=== PATIENT | female | born 1925 | race Caucasian/White ===

== ENCOUNTER 2016-12-27 09:04 | Inpatient (IN) | payer BC ==
--- NOTE | 2016-12-27 09:09 | DR.GENAD ---
HPI - HPI Comment HPI Comment: PATIENT HAVE NO SINIFICANT PAST MEDICAL HISTORY. RECENT OVARIAN CANCER ON TREATMENT. - Complaint/Symptoms Chief Complaint Doctors Comments: DIZZINESS, NEAR SYNCOPAL FELLING, PALPITATION NOTED TODAY. A FIB WITH RVR ON CORONARY CLINICAL SPECIALIST AND EKG. NO PREVIOUS HISTORY. - Nurses notes reviewed Nurses Notes Review: Yes - Source History Provided: Patient - Mode of Arrival Mode of Arrival: Ambulatory - Timing Came on: Suddenly - Duration Duration: Constant Duration: Hours - Severity Severity: Moderate ROS - Review of Systems Constitutional: Weakness, Fatigue Eyes: No Symptoms Reported. negative: Eye Pain, Tearing, Discharge ENTM: negative: Ear Pain, Nose Discharge, Nose Congestion, Throat Pain Respiratoy: Productive Cough, Short of Breath, Wheezing. negative: Non- Productive Cough, Hemoptysis Cardiovascular: Chest Pain, Palpitations Gastrointestinal/Abdominal: No Symptoms Reported Genitourinary: No Symptoms Reported Neurological: Weakness, Dizziness Musculoskeletal: No Symptoms Reported Integumentary: No Symptoms Reported Hematologic/Lymphatic: No Symptoms Reported All Other Systems: Reviewed and Negative PE - Vital Signs Vitals: Temperature 97.5 F Pulse Rate [Right Radial] 107 Pulse Rate 191 Respiratory Rate 20 Blood Pressure [Right Arm] 113/70 Blood Pressure 108/81 O2 Sat by Pulse Oximetry 99 - General Limitations: No Limitations General Appearance: Alert - Head Head Exam: Normal Inspection - Eyes Eye exam: Normal Appearance - ENT ENT Exam: Normal External Ear Exam External Ear Exam: Normal External Inspection TM/Canal Exam: Bilateral Normal Nose Exam: Normal Nose Exam Mouth Exam: Normal Inspection Throat Exam: Normal Inspection - Neck Neck Exam: Normal Inspection - Chest Chest Inspection: Symmetric Chest Wall Rise - Respiratory Respiratory Exam: Normal Lung Sounds Bilat Respiratory Exam: Bilateral Clear to Auscultation - Cardiovascular Cardiovascular Exam: Tachycardia, Irregular Rhythm - Abdominal Exam Abdominal Exam: Normal Bowel Sounds, Soft. negative: Tenderness - Extremities Extremities Exam: Normal Inspection - Back Back Exam: Normal Inspection - Neurologic Neurological Exam: Alert, Oriented X3, CN II-XII Intact - Psychiatric Psychiatric Exam: Normal Affect, Normal Mood - Skin Skin Exam: Normal Color MDM - Additional Information Additional Information Obtained From: Family - Differential Diagnosis Differential Diagnosis: NEW ONSET A FIB WITH RVR Course - Treatment Treatment: SEE ORDERS. IV BOLUS CARDIOZEM IN ED. - Consultation Consultation Comments: DISCUSS PATIENT WITH DR. FISHER. HE WILL ADMIT PATIENT. - Education/Counseling Education/Counseling: Patient, Education Educated On: Treatment, Diagnosis, Needs for Follow Up ROR - Labs Reviewed Laboratory Results Reviewed?: Yes Result Diagrams: 12/28/16 03:20 12/28/16 03:20 Laboratory: WBC 10.2 X10^3/uL (3.6-10.0) H 12/27/16 09:15 RBC 4.34 X10^6/uL (3.5-5.4) 12/27/16 09:15 Hgb 13.7 g/dL (12.0-16.0) 12/27/16 09:15 Hct 39.9 % (36.0-47.0) 12/27/16 09:15 MCV 91.8 fL (80.0-100.0) 12/27/16 09:15 MCH 31.5 pg (27.0-34.0) 12/27/16 09:15 MCHC 34.3 g/dL (33.0-35.0) 12/27/16 09:15 RDW 16.2 % (11.6-16.5) 12/27/16 09:15 Plt Count 266 X10^3/uL (150.0-450.0) 12/27/16 09:15 MPV 8.3 fL (7.4-11.0) 12/27/16 09:15 Neut % 80.8 % (42.0-75.0) H 12/27/16 09:15 Lymph % 15.5 % (21.0-51.0) L 12/27/16 09:15 [place] % 2.8 % (0.0-13.0) 12/27/16 09:15 Eos % 0.6 % (0.9-2.9) L 12/27/16 09:15 Baso % 0.3 % (0.2-1.0) 12/27/16 09:15 Neut # 8.2 x10^3/uL (2.2-4.8) H 12/27/16 09:15 Lymph # 1.6 X10^3/uL (1.3-2.9) 12/27/16 09:15 [place] # 0.3 x10^3/uL (0.3-0.8) 12/27/16 09:15 Eos # 0.1 x10^3/uL (0.0-0.2) 12/27/16 09:15 Baso # 0.0 X10^3/uL (0.0-0.1) 12/27/16 09:15 Absolute Nucleated RBC 0.0 /100WBC 12/27/16 09:15 Sodium 138 mmol/L (136-145) 12/27/16 09:15 Corrected Sodium 141 mmol/L (136-145) 12/27/16 09:15 Potassium 3.7 mmol/L (3.5-5.1) 12/27/16 09:15 Chloride 100 mmol/L (98-107) 12/27/16 09:15 Carbon Dioxide 26.9 mmol/L (21-32) 12/27/16 09:15 BUN 27 mg/dL (7-18) H 12/27/16 09:15 Creatinine 1.30 mg/dL (0.55-1.02) H 12/27/16 09:15 Est GFR (MDRD) Af Amer 50 (>60) L 12/27/16 09:15 Est GFR (MDRD) Non-Af 41 (>60) L 12/27/16 09:15 Glucose 222 mg/dL (65-99) H 12/27/16 09:15 Hemoglobin A1c 6.6 % (4.5-6.2) H 12/27/16 09:15 Calcium 8.8 mg/dL (8.5-10.1) 12/27/16 09:15 Corrected Calcium 9.7 mg/dL (8.5-10.1) 12/27/16 09:15 Total Bilirubin 1.00 mg/dL (0.2-1.0) 12/27/16 09:15 AST 23 Units/L (15-37) 12/27/16 09:15 ALT 32 Units/L (12-78) 12/27/16 09:15 Alkaline Phosphatase 91 Units/L (46-116) 12/27/16 09:15 Creatine Kinase 42 Units/L (26-192) 12/27/16 09:15 CK-MB (CK-2) < 1.0 ng/mL (0-4.0) 12/27/16 09:15 CK/CKMB % Calc 2.4 % (<4) 12/27/16 09:15 Troponin I 0.03 ng/mL (0-1.5) 12/27/16 09:15 Total Protein 6.2 g/dL (6.4-8.2) L 12/27/16 09:15 Albumin 2.9 g/dL (3.4-5.0) L 12/27/16 09:15 Globulin 3.3 g/dL (2.5-4.5) 12/27/16 09:15 Albumin/Globulin Ratio 0.9 Ratio (1.1-2.1) L 12/27/16 09:15 - XRAY XRAY Interpreted by: Radiologist XRAY Findings: REPORT DISCUSS WITH PATIENT. - EKG Rhythm: Afib (EKG NOTED) - Diagnosis Discharge Problem: Atrial fibrillation with RVR, New onset a-fib UTI (urinary tract infection) Qualifiers: Urinary tract infection type: site unspecified Hematuria presence: without hematuria Qualified Code(s): N39.0 - Urinary tract infection, site not specified - Discharge Plan Disposition: ADMITTED INPATIENT Condition: Stable - Follow ups/Referrals - Instructions
[2016-12-27] MEDS ORDERED: CARDIZEM INJ 125 MG VIAL 125 MG in NS 100 ML IV 100 ML IV PRN (09:11)
[2016-12-27] MEDS ORDERED: CARDIZEM INJ 50 MG VIAL IVP ONE (09:11)
[2016-12-27] MEDS ORDERED: CARDIZEM INJ 50 MG VIAL ONE (09:18)
[2016-12-27] MEDS ORDERED: NS 1000 ML 1,000 ML ONE (09:32)
[2016-12-27 09:38] LABS: BASOPHILS % (AUTO) 0.3 % (0.2-1.0); EOSINOPHILS # (AUTO) 0.1 x10^3/uL (0.0-0.2); EOSINOPHILS % (AUTO) 0.6 % (0.9-2.9); HEMATOCRIT 39.9 % (36.0-47.0); HEMOGLOBIN 13.7 g/dL (12.0-16.0); LYMPHOCYTES # (AUTO) 1.6 X10^3/uL (1.3-2.9); LYMPHOCYTES % (AUTO) 15.5 % (21.0-51.0); MEAN CORPUSCULAR HEMOGLOBIN 31.5 pg (27.0-34.0); MEAN CORPUSCULAR HGB CONC 34.3 g/dL (33.0-35.0); MEAN CORPUSCULAR VOLUME 91.8 fL (80.0-100.0); MEAN PLATELET VOLUME 8.3 fL (7.4-11.0); MONOCYTES # (AUTO) 0.3 x10^3/uL (0.3-0.8); MONOCYTES % (AUTO) 2.8 % (0.0-13.0); NEUTROPHILS # (AUTO) 8.2 x10^3/uL (2.2-4.8); NEUTROPHILS % (AUTO) 80.8 % (42.0-75.0); PLATELET COUNT 266 X10^3/uL (150.0-450.0); RED BLOOD COUNT 4.34 X10^6/uL (3.5-5.4); RED CELL DISTRIBUTION WIDTH 16.2 % (11.6-16.5); WHITE BLOOD COUNT 10.2 X10^3/uL (3.6-10.0)
[2016-12-27] MEDS ORDERED: NS 1000 ML 1,000 ML IV ONE (09:40)
[2016-12-27 09:46] LABS: BLOOD UREA NITROGEN 27 mg/dL (7-18); CALCIUM 8.8 mg/dL (8.5-10.1); CARBON DIOXIDE 26.9 mmol/L (21-32); CHLORIDE 100 mmol/L (98-107); COR NA(FOR HYPERGLY) 141 mmol/L (136-145); SODIUM 138 mmol/L (136-145); TROPONIN I 0.03 ng/mL (0-1.5); eGFR BLACK RACES 50 (>60); eGFR NON BLACK RACES 41 (>60)
[2016-12-27 09:50] LABS: ALANINE AMINOTRANSFERASE 32 Units/L (12-78); ALBUMIN 2.9 g/dL (3.4-5.0); ALKALINE PHOSPHATASE 91 Units/L (46-116); ASPARTATE AMINO TRANSFERASE 23 Units/L (15-37); CKMB % 2.4 % (<4); COR CA(FOR HYPOALB) 9.7 mg/dL (8.5-10.1); CREATINE KINASE 42 Units/L (26-192); CREATINE KINASE MB < 1.0 ng/mL (0-4.0); TOTAL PROTEIN 6.2 g/dL (6.4-8.2)
[2016-12-27] MEDS: CARDIZEM TAB 30 MG PLAIN PO SCH ×3 (10:54→21:00)
--- NOTE | 2016-12-27 13:08 | RAD ---
HISTORY: Chest pain Study: Single-view chest Comparison: None Findings: The trachea is midline. The cardiac silhouette is mildly enlarged and there is a right-sided Port-A- Cath with tip in the distal SVC.. The lungs are clear without focal infiltrate or effusion. The bon y thorax is unremarkable. IMPRESSION: 1. No acute cardiopulmonary disease. Reported By:
[2016-12-27 15:12] LABS: CKMB % 2.4 % (<4); CREATINE KINASE 41 Units/L (26-192); TROPONIN I 0.03 ng/mL (0-1.5)
[2016-12-27 15:17] LABS: CREATINE KINASE MB < 1.0 ng/mL (0-4.0)
[2016-12-27 21:14] LABS: CREATINE KINASE 29 Units/L (26-192); CREATINE KINASE MB < 1.0 ng/mL (0-4.0); TROPONIN I 0.03 ng/mL (0-1.5)
[2016-12-27 21:28] LABS: CKMB % 3.5 % (<4)
[2016-12-27 23:12] LABS: BILIRUBIN,URINE NEGATIVE (NEGATIVE); BLOOD/HEMOGLOBIN,URINE 2+ (NEGATIVE); GLUCOSE, URINE NEGATIVE (NEGATIVE); KETONES,URINE NEGATIVE (NEGATIVE); LEUKOCYTE ESTERASE ,URINE 3+ (NEGATIVE); NITRITES,URINE NEGATIVE (NEGATIVE); PROTEIN,URINE NEGATIVE (NEGATIVE); UROBILINOGEN,URINE NORMAL (NORMAL)
[2016-12-27 23:16] LABS: APPEARANCE,URINE CLOUDY (CLEAR); BACTERIA,URINE 2+ /HPF (NEGATIVE); COLOR,URINE YELLOW (YELLOW); RBC,URINE 0-3 /HPF (NEGATIVE); SQUAMOUS EPITHELIAL CELL,UR RARE /HPF (NEGATIVE)
[2016-12-28 05:01] LABS: BASOPHILS % (AUTO) 0.3 % (0.2-1.0); EOSINOPHILS # (AUTO) 0.1 x10^3/uL (0.0-0.2); EOSINOPHILS % (AUTO) 0.9 % (0.9-2.9); HEMATOCRIT 34.1 % (36.0-47.0); HEMOGLOBIN 11.9 g/dL (12.0-16.0); LYMPHOCYTES # (AUTO) 2.3 X10^3/uL (1.3-2.9); LYMPHOCYTES % (AUTO) 27.8 % (21.0-51.0); MEAN CORPUSCULAR HEMOGLOBIN 31.8 pg (27.0-34.0); MEAN CORPUSCULAR HGB CONC 34.7 g/dL (33.0-35.0); MEAN CORPUSCULAR VOLUME 91.5 fL (80.0-100.0); MEAN PLATELET VOLUME 8.4 fL (7.4-11.0); MONOCYTES # (AUTO) 0.4 x10^3/uL (0.3-0.8); NEUTROPHILS # (AUTO) 5.6 x10^3/uL (2.2-4.8); PLATELET COUNT 219 X10^3/uL (150.0-450.0); RED BLOOD COUNT 3.73 X10^6/uL (3.5-5.4); WHITE BLOOD COUNT 8.4 X10^3/uL (3.6-10.0)
[2016-12-28] MEDS: CARDIZEM TAB 30 MG PLAIN PO SCH ×3 (05:01→21:09)
[2016-12-28 05:27] LABS: ALANINE AMINOTRANSFERASE 25 Units/L (12-78); ALBUMIN 2.4 g/dL (3.4-5.0); ALKALINE PHOSPHATASE 78 Units/L (46-116); ASPARTATE AMINO TRANSFERASE 20 Units/L (15-37); BLOOD UREA NITROGEN 20 mg/dL (7-18); CALCIUM 8.4 mg/dL (8.5-10.1); CARBON DIOXIDE 27.3 mmol/L (21-32); CHLORIDE 102 mmol/L (98-107); CHOL/HDL RATIO 2.4 (0.0-5.0); CHOLESTEROL 138 mg/dL (0-200); COR CA(FOR HYPOALB) 9.7 mg/dL (8.5-10.1); COR NA(FOR HYPERGLY) 139 mmol/L (136-145); CREATININE 0.94 mg/dL (0.55-1.02); HDL CHOLESTEROL 58 mg/dL (40-60); MAGNESIUM 1.3 mg/dL (1.7-2.9); SODIUM 138 mmol/L (136-145); TOTAL PROTEIN 5.4 g/dL (6.4-8.2); TRIGLYCERIDES 152 mg/dL (0-150); eGFR BLACK RACES > 60 (>60); eGFR NON BLACK RACES 60 (>60)
[2016-12-28] MEDS ORDERED: LANOXIN PO ONE (09:53)
[2016-12-28] MEDS: PHENERGAN INJ 25 MG IM PRN ×2 (11:14→21:11)
[2016-12-28] MEDS: XARELTO PO SCH (11:16)
[2016-12-28] MEDS: TOPROL XL PO SCH (11:16)
--- NOTE | 2016-12-28 13:35 | DR.H&P ---
H&P - History & Physical for Day of: H&P Date: 12/27/16 - Chief Complaint Chief Complaint: IS A 89 YEAR OLD PATIENT WHO PRESENTED TO THE EMERGENCY ROOM WITH COMPLAINTS OF DIZZINESS, NEAR SYNCOPE, AND PALPITATIONS. PATIENT REPORTED THAT SHE IS HERE VISTING WITH HER BROTHER FROM [place]. SHE REPORTS THAT HER HEART BEGAN RACING AND SHE BECAME SHORT OF BREATH. SYMPTOMS BEGAN 20 MINUTES PRIOR TO ARRIVAL TO ER. ASSOCIATED SYMPTOMS ARE PRODUCTIVE WEAKNESS, COUGH, AND CHEST PAIN. PATIENT WAS PLACED ON DISTRICT SALES COORDINATOR SHOWS ATRIAL FIBRILLATION WITH RAPID VENTRICULAR RATE. ON EXAMINATION, LUNGS WERE NOTED WITH WHEEZING BILATERALLY TO AUSCULTATION. ON ARRIVAL TO ER, VITALS WERE 97.5-191-22-96%-108/81. LABS, CHEST XRAY, AND EKG WERE OBTAINED. ABNORMAL LAB VALUES REPORT THE FOLLOWING: WBC 10.2, PTT 22.8, D-DIMER 1480, BUN 27, CREATININE 1.30, GFR 41, GLUCOSE 222, A1C 6.6, TOTAL PROEIN 6.2, ALBUMIN 2.9. URINALYSIS REPORTS WBC 25-30, LEUKOCYTES 3+, BACTERIA 2+. URINE DRUG SCREEN NEGATIVE. CHEST XRAY REPORTS NO ACUTE CARDIPULMONARY DISEASE. EKG REPORTS ATRIAL FIBRILLATION WITH RVR, LEFT ANTERIOR FASCICULAR BLOCK. HEART RATE 191. SHE WAS GIVEN CARDIZEM 50MG IVP X 1 IN THE ER. WE ADMITTED PATIENT FOR FURTHER TREATMENT AND EVALUATION. WE STARTED PATIENT ON CARDIZEM 30MG PO Q8H. WE PLANNED TO RECHECK LABS AND EKG IN THE MORNING AND CONTINUE TO FOLLOW UP WITH PATIENT. - Allergies Allergies/Adverse Reactions: Allergies Allergy/AdvReac Type Severity Reaction Status Date / Time No Known Drug Allergies Allergy Verified 12/27/16 09:05 - Past Medical History Additional Medical History: ovarian cancer - Past Surgical History Surgical History: Hysterectomy - Family History Family Medical History: Heart Failure, Hypertension - Social History Does patient currently use any type of tobacco product: No Have you used tobacco products in the last 12 months: No Type of Tobacco Use: None Does any household member use tobacco: No Alcohol Use: None Drug Use: None - Medications Home Medications: Aspirin [Aspirin EC] 81 mg PO HS 12/27/16 [History Confirmed 12/27/16] Atorvastatin Calcium [Lipitor Tab 10 mg] 10 mg PO HS 12/27/16 [History Confirmed 12/27/16] Hydrochlorothiazide [Hydrochlorothiazide 25 mg Tab] 25 mg PO QAM 12/27/16 [ History Confirmed 12/27/16] Meclizine HCl [Antivert Tab 25 mg] 25 mg PO TID PRN 12/27/16 [History Confirmed 12/27/16] Multivitamin [Multi Vitamin Daily] 1 tab PO QAM 12/27/16 [History Confirmed ] Ondansetron HCl [Zofran] 4 - 8 mg PO Q8H PRN 12/27/16 [History Confirmed ] - Review of Systems Constitutional: See HPI, Weakness Eyes: No Symptoms Reported ENT: No Symptoms Reported Respiratory: See HPI, Cough, Shortness of Breath Cardiovascular: Chest Pain Gastrointestinal: No Symptoms Reported Genitourinary: No Symptoms Reported Musculoskeletal: No Symptoms Reported Skin: No Symptoms Reported Neurological: Weakness - Physical Exam Vital Signs: Temperature 98.1 F Pulse Rate [Right Radial] 104 Pulse Rate 122 Respiratory Rate 23 Blood Pressure [Right Arm] 95/53 Blood Pressure 108/81 O2 Sat by Pulse Oximetry 87 Oriented: Normal Eyes: Normal Ear: Normal Nose: Normal Throat: Normal Respiratory: Clear Throughout Cardiovascular: Tachycardia : Normal Auscultation: Bowel Sounds: Normal Palpation: Normal Tenderness: Normal Skin: Normal Musculoskeletal: Normal Psychiatric: Normal Mood Description: Calm Affect: Normal Speech Pattern: Clear - Assessment/Plan (1) Atrial fibrillation with RVR Status: Acute Plan: CARDIZEM 30MG PO Q8H, TELEMETRY, EKGS, CONTINUE TO MONITOR (2) UTI (urinary tract infection) Qualifiers: Urinary tract infection type: site unspecified Hematuria presence: without hematuria Qualified Code(s): N39.0 - Urinary tract infection, site not specified Status: Acute Plan: ROCEPHIN 1 GM IV DAILY, CONTINUE TO MONITOR
[2016-12-28] MEDS: MAGNESIUM SULFATE 1 GM/100 mL PREMIX 1 GM/100 ML BAG IV SCH ×2 (15:08→16:15)
[2016-12-28] MEDS ORDERED: NS 250 ML IV 250 ML IV ONE (15:10)
[2016-12-28] MEDS ORDERED: ANTIVERT TAB 25 MG PO PRN (20:27)
[2016-12-28] MEDS ORDERED: ASPIRIN EC 81 MG PO SCH (21:00)
[2016-12-28] MEDS ORDERED: LIPITOR TAB 10 MG PO SCH (21:00)
--- NOTE | 2016-12-28 21:42 | PCM.PROG ---
Progress Note - Progress Note for Day of Date: 12/28/16 - Subjective Subjective: WAS ADMITTED FOR ATRIAL FIBRILLATION WITH RVT. SHE WAS ALERT AND ORIENTED ON MORNING ROUNDS. SHE WAS NOTED WITH COMPLAINTS OF WEAKNESS , PRODUCTIVE COUGH, NAUSEA, AND SHORTNESS OF BREATH. SHE DENIED DIZZINESS OR CHEST PAIN THIS MORNING. LUNGS WERE NOTED WITH WHEEZING BILATERALLY. VITAL SIGNS THIS MORNING WERE 98.1-112-25-98%-103/71. LABS AND EKG WERE OBTAINED. ABNORMAL LAB VALUES INCLUED THE FOLLOWING: HGB 11.9, HCT 34.1, BUN 20, GLUCOSE 157, MAGNESIUM 1.3, TOTAL PROTEIN 5.4, ALBUMIN 2.4, TRIGLYCERIDES 152. MOST RECENT EKG REPORTS ATRIAL FIBRILLATION, LEFT ANTERIOR FASCICULAR BLOCK WITH HEART RATE OF 103. WE WILL ADMINISTER DIGOXIN 0.5MG IV X 1 DOSE. WE WILL START XARELTO 20MG PO DAILY, PHENERGAN 12.5MG IM Q4-6H PRN, AND METOPROLOL XL 25MG PO DAILY, AND WILL REVIEW HOME MEDICATIONS. WE WILL RECHECK AM LABS AND CONTINUE TO [place] PATIENT. - Past Medical Family Social History Past Med/Fam/Surg Hx: No changes since H&P Allergies: Allergies No Known Drug Allergies Allergy (Verified 12/27/16 09:05) - Review of Systems ROS: No change since H&P - Vital Signs and I&O's Vital Signs: Temperature 99.4 F Pulse Rate [Right Radial] 70 Pulse Rate 122 Respiratory Rate 30 Blood Pressure [Right Arm] 96/63 Blood Pressure 108/81 O2 Sat by Pulse Oximetry 96 Intake and Output: Intake & Output 12/26/16 12/27/16 12/28/16 12/29/16 11:59 11:59 11:59 11:59 Intake Total 1940 830 Output Total 500 800 Balance 1440 30 - Physical Exam Oriented: Normal Eyes: Normal Ear: Normal Nose: Normal Throat: Normal Cardiovascular: Tachycardia : Normal Auscultation: Bowel Sounds: Normal Palpation: Normal Tenderness: Normal Skin: Normal Musculoskeletal: Normal Psychiatric: Normal Mood Description: Calm Affect: Normal Speech Pattern: Clear - Laboratory and Diagnostics Result Diagrams: 12/28/16 03:20 12/28/16 03:20 Labs: 12/27/16 22:59 Urine,Clean Catch Urine Culture - Preliminary Laboratory WBC 8.4 X10^3/uL (3.6-10.0) 12/28/16 03:20 RBC 3.73 X10^6/uL (3.5-5.4) 12/28/16 03:20 Hgb 11.9 g/dL (12.0-16.0) L 12/28/16 03:20 Hct 34.1 % (36.0-47.0) L 12/28/16 03:20 MCV 91.5 fL (80.0-100.0) 12/28/16 03:20 MCH 31.8 pg (27.0-34.0) 12/28/16 03:20 MCHC 34.7 g/dL (33.0-35.0) 12/28/16 03:20 RDW 16.0 % (11.6-16.5) 12/28/16 03:20 Plt Count 219 X10^3/uL (150.0-450.0) 12/28/16 03:20 MPV 8.4 fL (7.4-11.0) 12/28/16 03:20 Neut % 66.0 % (42.0-75.0) 12/28/16 03:20 Lymph % 27.8 % (21.0-51.0) 12/28/16 03:20 [place] % 5.0 % (0.0-13.0) 12/28/16 03:20 Eos % 0.9 % (0.9-2.9) 12/28/16 03:20 Baso % 0.3 % (0.2-1.0) 12/28/16 03:20 Neut # 5.6 x10^3/uL (2.2-4.8) H 12/28/16 03:20 Lymph # 2.3 X10^3/uL (1.3-2.9) 12/28/16 03:20 [place] # 0.4 x10^3/uL (0.3-0.8) 12/28/16 03:20 Eos # 0.1 x10^3/uL (0.0-0.2) 12/28/16 03:20 Baso # 0.0 X10^3/uL (0.0-0.1) 12/28/16 03:20 Absolute Nucleated RBC 0.0 /100WBC 12/28/16 03:20 INR Target Range - 12/27/16 09:15 INR 1.09 (0.8-1.3) 12/27/16 09:15 PTT 22.8 SECONDS (22.9-36.5) L 12/27/16 09:15 PTT Comment - 12/27/16 09:15 D-Dimer 1480 ng/mL (0-400) H* 12/27/16 09:15 Sodium 138 mmol/L (136-145) 12/28/16 03:20 Corrected Sodium 139 mmol/L (136-145) 12/28/16 03:20 Potassium 3.7 mmol/L (3.5-5.1) 12/28/16 03:20 Chloride 102 mmol/L (98-107) 12/28/16 03:20 Carbon Dioxide 27.3 mmol/L (21-32) 12/28/16 03:20 BUN 20 mg/dL (7-18) H 12/28/16 03:20 Creatinine 0.94 mg/dL (0.55-1.02) 12/28/16 03:20 Est GFR (MDRD) Af Amer > 60 (>60) 12/28/16 03:20 Est GFR (MDRD) Non-Af 60 (>60) 12/28/16 03:20 Glucose 157 mg/dL (65-99) H 12/28/16 03:20 Hemoglobin A1c 6.6 % (4.5-6.2) H 12/27/16 09:15 Calcium 8.4 mg/dL (8.5-10.1) L 12/28/16 03:20 Corrected Calcium 9.7 mg/dL (8.5-10.1) 12/28/16 03:20 Magnesium 1.3 mg/dL (1.7-2.9) L 12/28/16 03:20 Total Bilirubin 0.80 mg/dL (0.2-1.0) 12/28/16 03:20 AST 20 Units/L (15-37) 12/28/16 03:20 ALT 25 Units/L (12-78) 12/28/16 03:20 Alkaline Phosphatase 78 Units/L (46-116) 12/28/16 03:20 Creatine Kinase 29 Units/L (26-192) 12/27/16 20:39 CK-MB (CK-2) < 1.0 ng/mL (0-4.0) 12/27/16 20:39 CK/CKMB % Calc 3.5 % (<4) 12/27/16 20:39 Troponin I 0.03 ng/mL (0-1.5) 12/27/16 20:39 Total Protein 5.4 g/dL (6.4-8.2) L 12/28/16 03:20 Albumin 2.3 g/dL (3.4-5.0) L 12/28/16 15:10 Globulin 3.0 g/dL (2.5-4.5) 12/28/16 03:20 Albumin/Globulin Ratio 0.8 Ratio (1.1-2.1) L 12/28/16 03:20 Triglycerides 152 mg/dL (0-150) H 12/28/16 03:20 Cholesterol 138 mg/dL (0-200) 12/28/16 03:20 LDL Cholesterol, Calc 50 mg/dL (0-100) 12/28/16 03:20 HDL Cholesterol 58 mg/dL (40-60) 12/28/16 03:20 Cholesterol/HDL Ratio 2.4 (0.0-5.0) 12/28/16 03:20 TSH 3rd Generation 2.815 uIU/mL (0.358-3.74) 12/27/16 09:15 Specimen Type Clean catch urine 12/27/16 22:59 Urine Color Yellow (YELLOW) 12/27/16 22:59 Urine Appearance Cloudy (CLEAR) 12/27/16 22:59 Urine pH 6.0 (5.0 - 8.0) 12/27/16 22:59 Ur Specific [place] 1.010 (1.000-1.030) 12/27/16 22:59 Urine Protein Negative (NEGATIVE) 12/27/16 22:59 Urine Glucose (UA) Negative (NEGATIVE) 12/27/16 22:59 Urine Ketones Negative (NEGATIVE) 12/27/16 22:59 Urine Occult Blood 2+ (NEGATIVE) 12/27/16 22:59 Urine Nitrite Negative (NEGATIVE) 12/27/16 22:59 Urine Bilirubin Negative (NEGATIVE) 12/27/16 22:59 Urine Urobilinogen Normal (NORMAL) 12/27/16 22:59 Ur Leukocyte Esterase 3+ (NEGATIVE) 12/27/16 22:59 Urine RBC 0-3 /HPF (NEGATIVE) 12/27/16 22:59 Urine WBC 25-30 /HPF (NEGATIVE) 12/27/16 22:59 Ur Squamous Epith Cells Rare /HPF (NEGATIVE) 12/27/16 22:59 Urine Bacteria 2+ /HPF (NEGATIVE) 12/27/16 22:59 Ur Culture Indicated? Yes/culture set up 12/27/16 22:59 Urine Opiates Screen Negative (NEG=<300) 12/27/16 22:59 Urine Methadone Screen Negative (NEG=<300) 12/27/16 22:59 Ur Barbiturates Screen Negative (NEG=<200) 12/27/16 22:59 Ur Phencyclidine Scrn Negative (NEG=<25) 12/27/16 22:59 Ur Amphetamines Screen Negative (NEG=<1000) 12/27/16 22:59 U Benzodiazepines Scrn Negative (NEG=<200) 12/27/16 22:59 Urine Cocaine Screen Negative (NEG=<300) 12/27/16 22:59 U Marijuana (THC) Screen Negative (NEG=<50) 12/27/16 22:59 Radiology Reviewed: Yes EKG Reviewed: Yes Rhythm: Afib - Plan (1) Atrial fibrillation with RVR Status: Acute Plan: CARDIZEM 30MG PO Q8H, TELEMETRY, EKGS, CONTINUE TO MONITOR (2) UTI (urinary tract infection) Status: Acute Qualifiers: Urinary tract infection type: site unspecified Hematuria presence: without hematuria Qualified Code(s): N39.0 - Urinary tract infection, site not specified Plan: ROCEPHIN 1 GM IV DAILY, CONTINUE TO MONITOR
[2016-12-28] MEDS: ROCEPHIN VIAL 1 GM 1 GM in NS 50 ML IV + SPIKE MINIBAG* 50 ML IV SCH (23:06)
[2016-12-29 05:23] LABS: BASOPHILS % (AUTO) 0.2 % (0.2-1.0); EOSINOPHILS # (AUTO) 0.1 x10^3/uL (0.0-0.2); EOSINOPHILS % (AUTO) 0.8 % (0.9-2.9); HEMATOCRIT 32.1 % (36.0-47.0); LYMPHOCYTES # (AUTO) 1.8 X10^3/uL (1.3-2.9); LYMPHOCYTES % (AUTO) 21.7 % (21.0-51.0); MEAN CORPUSCULAR HEMOGLOBIN 31.6 pg (27.0-34.0); MEAN CORPUSCULAR HGB CONC 34.2 g/dL (33.0-35.0); MEAN CORPUSCULAR VOLUME 92.3 fL (80.0-100.0); MEAN PLATELET VOLUME 8.1 fL (7.4-11.0); MONOCYTES # (AUTO) 0.7 x10^3/uL (0.3-0.8); MONOCYTES % (AUTO) 7.8 % (0.0-13.0); NEUTROPHILS # (AUTO) 5.8 x10^3/uL (2.2-4.8); NEUTROPHILS % (AUTO) 69.5 % (42.0-75.0); PLATELET COUNT 201 X10^3/uL (150.0-450.0); RED BLOOD COUNT 3.48 X10^6/uL (3.5-5.4); RED CELL DISTRIBUTION WIDTH 16.1 % (11.6-16.5); WHITE BLOOD COUNT 8.3 X10^3/uL (3.6-10.0)
[2016-12-29] MEDS: CARDIZEM TAB 30 MG PLAIN PO SCH (05:41)
[2016-12-29 05:50] LABS: ALANINE AMINOTRANSFERASE 26 Units/L (12-78); ALBUMIN 2.3 g/dL (3.4-5.0); ALKALINE PHOSPHATASE 76 Units/L (46-116); ASPARTATE AMINO TRANSFERASE 16 Units/L (15-37); BLOOD UREA NITROGEN 17 mg/dL (7-18); CALCIUM 8.1 mg/dL (8.5-10.1); CARBON DIOXIDE 29.8 mmol/L (21-32); CHLORIDE 103 mmol/L (98-107); COR CA(FOR HYPOALB) 9.5 mg/dL (8.5-10.1); COR NA(FOR HYPERGLY) 139 mmol/L (136-145); CREATININE 0.82 mg/dL (0.55-1.02); DIGOXIN 0.69 ng/mL (0.9-2); SODIUM 138 mmol/L (136-145); TOTAL PROTEIN 5.3 g/dL (6.4-8.2); eGFR BLACK RACES > 60 (>60); eGFR NON BLACK RACES > 60 (>60)
[2016-12-29] MEDS ORDERED: K-LYTE EFFERVESCENT PO PRN (05:56)
[2016-12-29] MEDS ORDERED: K-RIDER 10 MEQ/NS 100 ML 10 MEQ/100 ML BAG IV PRN (05:56)
[2016-12-29] MEDS ORDERED: POTASSIUM CHLORIDE LIQ 20 MEQ UDC PO PRN (05:56)
[2016-12-29] MEDS ORDERED: K-DUR TAB 20 MEQ PO PRN (05:56)
[2016-12-29] MEDS ORDERED: K-DUR TAB 20 MEQ PO ONE (05:58)
[2016-12-29] MEDS: PHENERGAN INJ 25 MG IM PRN (06:08)
[2016-12-29 07:15] VITALS: BMI 29.5
[2016-12-29] MEDS ORDERED: ALBUMIN HUMAN 25%- 100ML 100 ML IV SCH (08:00)
[2016-12-29] MEDS: TOPROL XL PO SCH (08:30)
[2016-12-29] MEDS: XARELTO PO SCH (08:30)
[2016-12-29] MEDS: ROCEPHIN VIAL 1 GM 1 GM in NS 50 ML IV + SPIKE MINIBAG* 50 ML IV SCH (08:30)
[2016-12-29] MEDS ORDERED: TAB-A-VITE PO SCH (09:00)
[2016-12-29] MEDS: MAGNESIUM SULFATE 1 GM/100 mL PREMIX 1 GM/100 ML BAG IV SCH ×2 (09:35→10:52)
[2016-12-29 09:58] VITALS: BP 101/50
[2016-12-29] MEDS ORDERED: MAGNESIUM SULFATE 1 GM/100 mL PREMIX 1 GM/100 ML BAG IV ONE (10:22)
== END 2016-12-29 13:10 | disposition home or self-care (01) | DRG 309 ==
LOC: ER 09:32 → OBSVTOIN 11:26 → ICU 11:26
PROVIDERS: ADMIT Internal Medicine; ATTEND Internal Medicine
DX: I48.91 Unspecified atrial fibrillation (principal); R55 Syncope and collapse; R42 Dizziness and giddiness; N39.0 Urinary tract infection, site not specified; R94.31 Abnormal electrocardiogram [ECG] [EKG]; B96.29 Other Escherichia coli [E. coli] as the cause of diseases classified elsewhere; Z79.01 Long term (current) use of anticoagulants; R06.02 Shortness of breath; C56.9 Malignant neoplasm of unspecified ovary
CPT/HCPCS: 36415; 71010; 80053; 80061; 80162; 80307; 81001; 82040; 82550; 82553; 83036; 83735; 84132; 84443; 84484; 85025; 85378; 85610; 85730; 87086; 87088; 87186; 93005; 93041; 96365; 96374; 99284; A4222; P9047; G0434; J0696; J2550; J3490